=== PATIENT | male | born 1990 | race Hispanic/Latino ===

== ENCOUNTER 2023-07-25 05:34 | Emergency (ER) | payer OTHER ==
[2023-07-25] MEDS ORDERED: Dextrose 5 %-0.45 % NaCl 1,000 ML ONE (06:03)
[2023-07-25 06:28] LABS: #Basophils 0.1 thou/uL (0.0-0.2); #Eosinphils 0.4 thou/uL (0.0-0.7); #Lymphocytes 1.8 thou/uL (1.20-3.40); #Monocytes 0.4 thou/uL (0.11-0.59); %Basophils 0.8 % (0.0-1.0); %Lymphocytes 23.5 % (21.0-51.0); %Monocytes 5.6 % (0.0-10.0); %Neutrophils 65.2 % (42.0-75.0); Hematocrit 28.4 % (42.0-52.0); Hemoglobin 8.8 g/dL (14.0-18.0); Mean Corpuscular HGB CONC 30.9 g/dL (32.0-36.0); Mean Corpuscular Hemoglobin 27.5 pg (27.0-31.0); Mean Corpuscular Volume 89.2 fl (78.0-98.0); Mean Platelet Volume 9.9 fL (7.4-10.4); Platelet Count 182 10x3/uL (130-400); RBC Distribution Width 11.7 % (11.5-14.5); Red Blood Cell (RBC) Count 3.18 mill/uL (4.70-6.10); White Blood Cell (WBC) Count 7.6 10x3/uL (4.8-10.8)
[2023-07-25 06:42] LABS: Bilirubin, Total 0.2 mg/dL (0.2-1.2); Calc. Creatinine Clearance 0 mL/min (70-130)
[2023-07-25 07:49] LABS: Sodium 138 mmol/L (136-145)
[2023-07-25 07:54] LABS: Anion Gap 10 mmol/L (10-20)
[2023-07-25 07:56] LABS: Calcium 8.5 mg/dL (7.6-10.4); Estimated GFR 119; Glucose 79 mg/dL (70-105)
[2023-07-25 07:58] LABS: Globulin 3.1 g/dL (2.4-3.5)
[2023-07-25 08:00] LABS: ALT (SGPT) 19 U/L (8-55)
[2023-07-25 08:04] LABS: Chloride 107 mmol/L (98-107); Potassium 3.3 mmol/L (3.5-5.1)
[2023-07-25 08:05] LABS: BUN (Urea Nitrogen) 21 mg/dL (8.9-20.6); Carbon Dioxide 24 mmol/L (22-29)
[2023-07-25 08:07] LABS: Albumin 3.2 g/dL (3.5-5.0); Protein, Total 6.3 g/dL (6.0-8.3)
[2023-07-25 08:08] LABS: AST (SGOT) 17 U/L (5-34); Alkaline Phosphatase 95 U/L (40-110)
[2023-07-25] MEDS ORDERED: DULoxetine 30 MG CAP ONE (08:27)
[2023-07-25] MEDS ORDERED: Divalproex Sodium 250 MG ER.TAB ONE ×2 (08:27→08:29)
== END 2023-07-25 11:50 | disposition home or self-care (01) ==
LOC: EEVIPCON 05:34 → NAV ERS 05:34
DX: R56.9 Unspecified convulsions (principal); S00.93XA Contusion of unspecified part of head, initial encounter; E10.649 Type 1 diabetes mellitus with hypoglycemia without coma; E10.40 Type 1 diabetes mellitus with diabetic neuropathy, unspecified; I10 Essential (primary) hypertension; E78.5 Hyperlipidemia, unspecified; Z79.899 Other long term (current) drug therapy; Z79.82 Long term (current) use of aspirin
CPT/HCPCS: 36416; 70450; 80053; 80164; 85025; 96374; J7042